=== PATIENT | male | born 1985 | race Two or more races ===

== ENCOUNTER 2021-08-05 21:36 | Emergency (ER) | payer MEDICAID, OTHER ==
[~2021-08-05] VITALS: Ht 170.2 cm; Wt 108.9 kg
[~2021-08-05 21:36] MED LIST: HYDR-3974 PO
[2021-08-05] MEDS ORDERED: FLUORESCEIN SODIUM OPHTH 1 EA STRIP ONE (22:31)
--- NOTE | 2021-08-05 23:04 | NUR ---
RT EYE IRRIGATION COMPLETED MD AWARE
--- NOTE | 2021-08-05 23:10 | NUR ---
pt came in from home c/o rt eye pain and redness, pt feels something in eye.
[2021-08-05] MEDS ORDERED: TOBR2.5D RIGHTEYE (23:30)
--- NOTE | 2021-08-05 23:45 | NUR ---
pt given d/c instructions. pt discharged left in stable condition
[2021-08-06 00:16] VITALS: BP 170/77
== END 2021-08-06 00:17 | disposition home or self-care (01) ==
LOC: ER 21:36
DX: S05.01XA Injury of conjunctiva and corneal abrasion without foreign body, right eye, initial encounter (principal); F17.200 Nicotine dependence, unspecified, uncomplicated; Z90.89 Acquired absence of other organs; Z79.891 Long term (current) use of opiate analgesic; Z79.899 Other long term (current) drug therapy; X58.XXXA Exposure to other specified factors, initial encounter; Y93.89 Activity, other specified; Y92.89 Other specified places as the place of occurrence of the external cause; Y99.8 Other external cause status

== ENCOUNTER 2021-10-16 19:59 | Emergency (ER) | payer MEDICAID ==
[~2021-10-16] VITALS: Ht 170.2 cm; Wt 93.0 kg
[~2021-10-16 19:59] MED LIST changes: +TOBR2.5D RIGHTEYE
--- NOTE | 2021-10-16 21:12 | NUR ---
TO ER BED 9. BIBSELF C/O BLOOD IN URINE, H/A, N/V, LETHARGY SINCE THIS MORNING. PT DENIES ANY CHEST PAIN. NOT IN RESPIRATORY DITRESS. EMESIS BAG PROVIDED. CONNECTED TO MONITOR.
--- NOTE | 2021-10-16 21:13 | NUR ---
URINE COLLECTED AND SENT TO LAB
[2021-10-16 21:29] LABS: BILIRUBIN,URINE NEGATIVE (NEGATIVE); COLOR,URINE YELLOW (YELLOW); LEUKOCYTE ESTERASE ,URINE NEGATIVE (NEGATIVE); NITRITE, URINE NEGATIVE (NEGATIVE); PH,URINE 5.5 (5.0-8.0); PROTEIN,URINE TRACE mg/dl (NEGATIVE); UGLUCOSE >=1000 mg/dL (NEGATIVE); UROBILINOGEN,URINE 0.2 EU/dL (0.2)
--- NOTE | 2021-10-16 22:05 | NUR ---
J[employer]ER AT PT'S BEDSIDE
--- NOTE | 2021-10-16 22:11 | NUR ---
PT SEEN BY DR. LAW ESPINOZA
[2021-10-16] MEDS ORDERED: IV NS 0.9% 2,000 ML IV ONE (22:30)
--- NOTE | 2021-10-16 22:33 | NUR ---
LFA #18G S/L; PATENT AND INTACT. BLOOD COLLECTED AND SENT TO LAB
[2021-10-16 22:52] LABS: CALCIUM, SERUM 9.3 mg/dL (8.5-10.1); POTASSIUM 4.1 mmol/L (3.5-5.1)
[2021-10-16 22:54] LABS: BASOPHILS # (AUTO) 0.1 K/uL (0.0-0.2); BASOPHILS % (AUTO) 0.7 % (0.0-2.0); EOSINOPHILS % (AUTO) 5.1 % (0.0-6.0); HEMATOCRIT 49 % (39-51); HEMOGLOBIN 16.7 g/dL (13.5-17.5); LYMPHOCYTES # (AUTO) 3.4 K/uL (0.8-4.8); LYMPHOCYTES % (AUTO) 38.5 % (20.0-44.0); MEAN CORPUSCULAR HGB CONC 34 g/dl (31.0-36.0); MEAN CORPUSCULAR VOLUME 86 fL (80-96); MONOCYTES # (AUTO) 0.5 K/uL (0.1-1.30); MONOCYTES % (AUTO) 6.1 % (2.0-12.0); NEUTROPHILS # (AUTO) 4.4 K/uL (1.8-8.9); NEUTROPHILS % (AUTO) 49.6 % (43.0-81.0); PLATELET COUNT (AUTO) 252 K/uL (150-450); WHITE BLOOD COUNT (AUTO) 8.9 K/uL (4.3-11.0)
[2021-10-16] MEDS ORDERED: METF-442 PO (23:05)
[2021-10-17 00:48] VITALS: BP 156/99
== END 2021-10-17 00:49 | disposition home or self-care (01) ==
LOC: ER 20:08
DX: E11.65 Type 2 diabetes mellitus with hyperglycemia (principal); F17.200 Nicotine dependence, unspecified, uncomplicated; Z90.89 Acquired absence of other organs; Z79.899 Other long term (current) drug therapy
CPT/HCPCS: 36415; 80048; 81003; 85025; 96360; 99283; J7030

== ENCOUNTER 2023-02-08 09:32 | Emergency (ER) | payer MEDICAID ==
[~2023-02-08] VITALS: Ht 170.2 cm; Wt 96.6 kg
[~2023-02-08 09:32] MED LIST changes: +METF-442 PO
[2023-02-08 10:26] LABS: CALCIUM, SERUM 9.7 mg/dL (8.5-10.1); CREATININE 0.9 mg/dL (0.6-1.3); POTASSIUM 4.1 mmol/L (3.5-5.1)
[2023-02-08] MEDS ORDERED: IV NS 0.9% 1,000 ML BAG IV ONE (11:00)
[2023-02-08] MEDS ORDERED: INSULIN REGULAR, HUMAN 100 UNIT/ML 10 ML VIAL SQ ONE ×2 (11:00→11:30)
[2023-02-08] MEDS ORDERED: IV NS 0.9% 250 ML IV ONE (11:07)
[2023-02-08] MEDS ORDERED: IOHEXOL-300 100 ML VIAL IV ONE (11:07)
[2023-02-08 11:25] LABS: BASOPHILS # (AUTO) 0.1 K/uL (0.0-0.2); BASOPHILS % (AUTO) 0.8 % (0.0-2.0); EOSINOPHILS # (AUTO) 0.2 K/uL (0.0-0.7); EOSINOPHILS % (AUTO) 2.7 % (0.0-6.0); HEMATOCRIT 48 % (39-51); HEMOGLOBIN 16.2 g/dL (13.5-17.5); LYMPHOCYTES # (AUTO) 2.3 K/uL (0.8-4.8); LYMPHOCYTES % (AUTO) 30.5 % (20.0-44.0); MEAN CORPUSCULAR HEMOGLOBIN 29 PG (26.0-33.0); MEAN CORPUSCULAR HGB CONC 34 g/dl (31.0-36.0); MEAN CORPUSCULAR VOLUME 85 fL (80-96); MONOCYTES # (AUTO) 0.6 K/uL (0.1-1.30); MONOCYTES % (AUTO) 7.5 % (2.0-12.0); NEUTROPHILS # (AUTO) 4.4 K/uL (1.8-8.9); NEUTROPHILS % (AUTO) 58.5 % (43.0-81.0); PLATELET COUNT (AUTO) 252 K/uL (150-450); RED BLOOD CELL COUNT(AUTO) 5.65 MIL/uL (4.5-6.0); RED CELL DISTRIBUTION WIDTH 12.8 % (11.5-15.0); WHITE BLOOD COUNT (AUTO) 7.5 K/uL (4.3-11.0)
[2023-02-08] MEDS ORDERED: INSULIN REGULAR, HUMAN 100 UNIT/ML 10 ML VIAL ONE (11:28)
[2023-02-08] MEDS ORDERED: CEFTRIAXONE 1 G in IV D5W 50 ML IV ONE (13:00)
[2023-02-08] MEDS ORDERED: CEFTRIAXONE 1GM BAG (ER ONLY) 50 ML IV ONE (13:27)
[2023-02-08] MEDS ORDERED: CEPH500T PO (13:38)
[2023-02-08 14:39] VITALS: BP 136/78; TEMP 98.6; O2SAT 99
== END 2023-02-08 14:39 | disposition home or self-care (01) ==
LOC: ER 09:37
DX: E11.65 Type 2 diabetes mellitus with hyperglycemia (principal); L03.211 Cellulitis of face; F17.200 Nicotine dependence, unspecified, uncomplicated; Z90.89 Acquired absence of other organs; Z79.84 Long term (current) use of oral hypoglycemic drugs
CPT/HCPCS: 99285; 96365; 70487; 96361; 96372; 85025; 80048; 36415; 82962 ×2; J1815; J0696 ×2; J7060; J7030; J7050; Q9967

== ENCOUNTER 2023-03-20 14:46 | Emergency (ER) | payer MEDICAID ==
[~2023-03-20] VITALS: Ht 172.7 cm; Wt 99.8 kg
[~2023-03-20 14:46] MED LIST changes: +CEPH500T PO
[2023-03-20 14:50] VITALS: BP 153/102; TEMP 98.2
[2023-03-20] MEDS ORDERED: CLOT15CR27 TP (15:18)
[2023-03-20 15:59] VITALS: O2SAT 99
== END 2023-03-20 15:59 | disposition home or self-care (01) ==
LOC: ER 14:47
DX: E11.65 Type 2 diabetes mellitus with hyperglycemia (principal); B35.6 Tinea cruris; F17.200 Nicotine dependence, unspecified, uncomplicated; Z90.89 Acquired absence of other organs; Z79.84 Long term (current) use of oral hypoglycemic drugs
CPT/HCPCS: 82962-TC

== ENCOUNTER 2024-11-09 15:33 | Emergency (ER) | payer MEDICAID ==
[~2024-11-09] VITALS: Ht 170.2 cm; Wt 93.0 kg
[~2024-11-09 15:33] MED LIST changes: +CLOT15CR27 TP
[2024-11-09 16:45] VITALS: TEMP 98.3
[2024-11-09] MEDS ORDERED: FLUORESCEIN SODIUM OPHTH 1 EA STRIP ONE (17:58)
[2024-11-09] MEDS ORDERED: TETRAcaine 5 ML BOTTLE ONE (17:58)
[2024-11-09] MEDS: FLUORESCEIN SODIUM OPHTH 1 EA STRIP OP ONE (18:00)
[2024-11-09] MEDS ORDERED: IOHEXOL-300 100 ML VIAL IV ONE (18:19)
[2024-11-09] MEDS ORDERED: IV NS 0.9% 250 ML IV ONE (18:19)
[2024-11-09] MEDS ORDERED: CT SWABBABLE VALVE TRANS SET 1 EA INFUS.SET MC ONE (18:19)
[2024-11-09 18:45] LABS: CREATININE 1.1 mg/dL (0.6-1.3); POTASSIUM 4.4 mmol/L (3.5-5.1)
[2024-11-09] MEDS: IV NS 0.9% 1,000 ML BAG IV ONE (19:12)
[2024-11-09 19:22] LABS: BASOPHILS % (AUTO) 0.6 % (0.0-2.0); EOSINOPHILS # (AUTO) 0.2 K/uL (0.0-0.7); EOSINOPHILS % (AUTO) 2.7 % (0.0-6.0); HEMATOCRIT 46 % (39-51); HEMOGLOBIN 16.1 g/dL (13.5-17.5); LYMPHOCYTES # (AUTO) 2.7 K/uL (0.8-4.8); LYMPHOCYTES % (AUTO) 38.9 % (20.0-44.0); MEAN CORPUSCULAR HEMOGLOBIN 30 PG (26.0-33.0); MEAN CORPUSCULAR HGB CONC 35 g/dl (31.0-36.0); MEAN CORPUSCULAR VOLUME 86 fL (80-96); MONOCYTES # (AUTO) 0.5 K/uL (0.1-1.30); MONOCYTES % (AUTO) 7.6 % (2.0-12.0); NEUTROPHILS # (AUTO) 3.5 K/uL (1.8-8.9); NEUTROPHILS % (AUTO) 50.2 % (43.0-81.0); PLATELET COUNT (AUTO) 245 K/uL (150-450); RED BLOOD CELL COUNT(AUTO) 5.41 MIL/uL (4.5-6.0); RED CELL DISTRIBUTION WIDTH 13.1 % (11.5-15.0); WHITE BLOOD COUNT (AUTO) 7.1 K/uL (4.3-11.0)
[2024-11-09 19:29] LABS: ERYTHROCYTE SEDIMENTATION RATE 6 MM/HR (0-15)
[2024-11-09] MEDS: KETOROLAC TROMETHAMINE 15 MG/ML VIAL IV ONE ×2 (19:37→21:33)
[2024-11-09] MEDS ORDERED: KETOROLAC TROMETHAMINE 15 MG/ML VIAL ONE ×2 (19:42→21:31)
[2024-11-09] MEDS ORDERED: KETO10TA2 PO (21:29)
[2024-11-09 21:39] VITALS: BP 134/79; O2SAT 100
== END 2024-11-09 21:40 | disposition home or self-care (01) ==
LOC: ER 15:33
DX: G43.009 Migraine without aura, not intractable, without status migrainosus (principal); I10 Essential (primary) hypertension; E11.9 Type 2 diabetes mellitus without complications; E78.5 Hyperlipidemia, unspecified; F17.200 Nicotine dependence, unspecified, uncomplicated; Z79.4 Long term (current) use of insulin; Z79.84 Long term (current) use of oral hypoglycemic drugs; Z90.49 Acquired absence of other specified parts of digestive tract; Z79.899 Other long term (current) drug therapy
CPT/HCPCS: 99285; 96374; 70481; 96361; 96376; 85025; 80048; 85652; 36415; 82962; J1885 ×2; J7050; Q9967